=== PATIENT | male | born 1945 | race Native Hawaiian/Other Pacific Islander ===

== ENCOUNTER 2018-05-12 10:27 | Emergency (ER) | payer OTHER ==
[~2018-05-12] VITALS: Ht 177.8 cm; Wt 63.5 kg
[~2018-05-12 10:27] MED LIST: DIVA125C PO; DOCU100C10 PO; ESCI10TA PO; FERROUS SULF325 MG PO; FINA5TAB2 PO; KP FOLIC ACID1 MG PO; LIPITOR20 MG PO; OXCARBAZEPIN300 MG PO; OXYC5TAB53 PO; QUET100T2 PO; QUET25TA2 PO; TAMS0.4C PO; THIA100T8 PO
[2018-05-12 11:22] LABS: PLATELET COUNT 212 K/uL (142-355)
[2018-05-12 11:27] LABS: POTASSIUM 3.5 mmol/L (3.6-5.2)
[2018-05-12 12:35] VITALS: BP 128/78; TEMP 98
== END 2018-05-12 12:35 | disposition other institution (70) ==
LOC: ED 10:27
DX: R46.89 Other symptoms and signs involving appearance and behavior (principal); N39.0 Urinary tract infection, site not specified; I44.7 Left bundle-branch block, unspecified; Z04.6 Encounter for general psychiatric examination, requested by authority
CPT/HCPCS: 36415; 80053; 81000; 85027; 87086; 87088; 93005; 99285